=== PATIENT | female | born 1945 | race African-American/Black ===

== ENCOUNTER 2021-04-14 23:03 | Inpatient (IN) | payer BC, MEDICARE, OTHER ==
[~2021-04-14] VITALS: Ht 180.3 cm; Wt 99.3 kg
--- NOTE | 2021-04-14 23:20 | NUR ---
Dr. Reno at bedside, MSE in progress.
--- NOTE | 2021-04-14 23:21 | NUR ---
Patient BIB family member from home via wheelchair with c/o right groin pain radiating to back of her right thigh and back that started last night, PL:06/19. Also c/o RLE worsening swelling of right leg with increasing pain. A/O x4, no SOB or labored breathing, afebrile. Denies CP/pressure. All pulses palpable. Denies any GI/ distress.
[2021-04-14] MEDS ORDERED: OXYCODONE/APAP 5-325 MG TABLET ONE (23:43)
[2021-04-14] MEDS ORDERED: OXYCODONE/APAP 5-325 MG TABLET PO ONE (23:45)
[2021-04-15] MEDS ORDERED: ACYCLOVIR PO (00:01)
[2021-04-15] MEDS ORDERED: GABAPENTIN PO (00:01)
[2021-04-15] MEDS ORDERED: FENTANYL PATCH TD (00:01)
[2021-04-15] MEDS ORDERED: OXYCODONE PO (00:01)
--- NOTE | 2021-04-15 00:10 | NUR ---
Brando from Ultrasound at bedside.
[2021-04-15 00:21] LABS: MEAN CORPUSCULAR HEMOGLOBIN 30.6 uug (24.7-32.8); MEAN CORPUSCULAR VOLUME 91.9 fL (75.5-95.3); PLATELET COUNT (AUTO) 221 K/uL (179-408)
[2021-04-15 00:29] LABS: CREATININE 0.8 mg/dL (0.6-1.3); POTASSIUM 3.9 mmol/L (3.5-5.1)
--- NOTE | 2021-04-15 00:30 | NUR ---
Xray at bedside.
[2021-04-15 00:46] LABS: BILIRUBIN,DIRECT 0.2 mg/dL (0.0-0.2); BILIRUBIN,TOTAL 0.7 mg/dL (0.2-1.0); TOTAL PROTEIN, SERUM 6.9 g/dL (6.4-8.2)
[2021-04-15 00:52] LABS: *BILIRUBIN,URIN NEGATIVE (NEGATIVE); *CLARITY,URINE CLEAR (CLEAR); *COLOR,URINE YELLOW (YELLOW); *KETONES,URINE 1+ (NEGATIVE); *UROBILINOGEN,URINE 0.2 E.U./dl (NORMAL); LEUKOCYTE ESTERASE ,URINE TRACE (NEGATIVE); NITRITE, URINE NEGATIVE (NEGATIVE); UGLUCOSE NEGATIVE (NEGATIVE)
[2021-04-15 00:56] LABS: *BLOOD, URINE TRACE (NEGATIVE)
[2021-04-15] MEDS ORDERED: KETOROLAC TROMETHAMINE 30 MG INJ IM ONE (01:00)
[2021-04-15 01:06] LABS: BACTERIA,URINE NONE SEEN /HPF (NONE SEEN); SQUAMOUS EPITHELIAL CELL,UR FEW /HPF (NONE SEEN); WBC,URINE 0-3 /HPF (0-3)
[2021-04-15] MEDS ORDERED: KETOROLAC TROMETHAMINE 30 MG INJ ONE (01:16)
--- NOTE | 2021-04-15 02:08 | NUR ---
Pt taken down for CT.
[2021-04-15] MEDS ORDERED: SWABABLE VALVE TRANSFER SET EA MC ONE (02:09)
[2021-04-15] MEDS ORDERED: IOHEXOL 300MG/ML 100 ML INFUS..BTL ONE (02:09)
[2021-04-15] MEDS ORDERED: IV NORMAL SALINE 250 ML IV ONE (02:09)
--- NOTE | 2021-04-15 02:22 | NUR ---
Pt returned from CT, stable condition.
--- NOTE | 2021-04-15 03:45 | NUR ---
Called [facility] for panel call, Dr. Gilmore paged.
--- NOTE | 2021-04-15 03:48 | NUR ---
Patient is resting comfortably in bed with eyes closed.
[2021-04-15] MEDS ORDERED: MAGNESIUM HYDROXIDE 30 ML LIQUID UDC PO PRN (04:15)
[2021-04-15] MEDS ORDERED: ONDANSETRON 4 MG/2 ML VIAL IV PRN (04:15)
[2021-04-15] MEDS ORDERED: Z GUARD REMEDY PASTE 57 GM TUBE TOP PRN (04:15)
--- NOTE | 2021-04-15 04:53 | NUR ---
Gave report to Ana NATARAJAN in Med Surg.
[2021-04-15 05:05] VITALS: BP 113/63
--- NOTE | 2021-04-15 05:15 | NUR ---
Pt. admitted to Med Surg , under care of Dr. Gilmore Belongs List completed
[2021-04-15] MEDS: PANTOPRAZOLE SODIUM 40 MG TABLET.DR PO SCH (06:12)
[2021-04-15] MEDS: IV NS 1000 ML 1,000 ML IV PRN ×2 (06:12→19:56)
[2021-04-15] MEDS: MORPHINE SULFATE 2 MG/1 ML DISP.SYRIN IV PRN ×2 (08:52→14:16)
[2021-04-15] MEDS: ENOXAPARIN SODIUM 40 MG/0.4 ML DISP.SYRIN SQ SCH (10:03)
[2021-04-15 12:00] VITALS: BP 111/65
[2021-04-15] MEDS ORDERED: GABA600T12 PO (14:44)
[2021-04-15] MEDS ORDERED: FENT1PAT22 TOP (14:44)
[2021-04-15 15:54] VITALS: BP 114/52
[2021-04-15] MEDS ORDERED: PIPERACILLIN SODIUM/TAZOBACTAM 3.375 G in IV DEXTROSE 5% 50 ML IV ONE (17:00)
[2021-04-15] MEDS: FUROSEMIDE 20 MG TABLET PO SCH (18:16)
--- NOTE | 2021-04-15 19:30 | NUR ---
RECEIVED PT AWAKE, ALERT AND ORIENTEDX4. PT IN NO ACUTE DISTRESS. IV INTACT. SAFETY AND COMFORT PROVIDED. WILL CONTINUE TO MONITOR.
--- NOTE | 2021-04-15 20:13 | NUR ---
TEXTED DR. LEBLANC FOR MRI APPROVAL.
[2021-04-15 20:30] VITALS: BP 113/54
[2021-04-15 21:57] LABS: *BILIRUBIN,URIN NEGATIVE (NEGATIVE); *BLOOD, URINE TRACE LYSED (NEGATIVE); *CLARITY,URINE CLEAR (CLEAR); *COLOR,URINE YELLOW (YELLOW); *KETONES,URINE NEGATIVE (NEGATIVE); *UROBILINOGEN,URINE 0.2 E.U./dl (NORMAL); LEUKOCYTE ESTERASE ,URINE NEGATIVE (NEGATIVE); NITRITE, URINE NEGATIVE (NEGATIVE); PH,URINE 5.5 (5.0-8.0); UGLUCOSE NEGATIVE (NEGATIVE)
[2021-04-15 22:42] LABS: BACTERIA,URINE NONE SEEN /HPF (NONE SEEN); SQUAMOUS EPITHELIAL CELL,UR FEW /HPF (NONE SEEN); WBC,URINE 0-3 /HPF (0-3)
[2021-04-16] MEDS: PIPERACILLIN SODIUM/TAZOBACTAM 3.375 G in IV DEXTROSE 5% 100 ML IV SCH ×3 (00:07→17:27)
[2021-04-16] MEDS: MORPHINE SULFATE 2 MG/1 ML DISP.SYRIN IV PRN ×2 (02:28→06:47)
[2021-04-16 04:30] VITALS: BP 106/49
[2021-04-16] MEDS: ACETAMINOPHEN 325 MG TABLET PO PRN ×2 (05:41→14:15)
[2021-04-16 05:42] LABS: HEMATOCRIT 29.5 % (31.2-41.9); MEAN CORPUSCULAR HEMOGLOBIN 30.4 uug (24.7-32.8); MEAN CORPUSCULAR VOLUME 92.1 fL (75.5-95.3); PLATELET COUNT (AUTO) 162 K/uL (179-408)
[2021-04-16 06:01] LABS: BILIRUBIN,TOTAL 0.5 mg/dL (0.2-1.0); CREATININE 0.8 mg/dL (0.6-1.3); MAGNESIUM 1.9 mg/dL (1.8-2.4); PHOSPHOROUS 3.2 mg/dL (2.5-4.9); POTASSIUM 3.6 mmol/L (3.5-5.1); TOTAL PROTEIN, SERUM 5.7 g/dL (6.4-8.2)
[2021-04-16 06:09] LABS: THYROID STIMULATING HORMONE 3.849 mIU/mL (0.358-3.740)
[2021-04-16] MEDS: PANTOPRAZOLE SODIUM 40 MG TABLET.DR PO SCH (06:15)
--- NOTE | 2021-04-16 06:26 | NUR ---
PT IN NO ACUTE RESPIRATORY DISTRESS. IV INTACT. MORPHINE PRN GIVEN 0228H FOR GROIN PAIN. TYLENOL 650 MG PRN GIVEN AT 0541H FOR PAIN. SAFETY AND COMFORT PROVIDED. WILL CONTINUE TO MONITOR.
[2021-04-16 07:06] LABS: AFP, TUMOR MARKER 3.4 ng/mL (0.0-8.3)
[2021-04-16 08:00] VITALS: BP 105/55
[2021-04-16] MEDS: FUROSEMIDE 20 MG TABLET PO SCH ×2 (08:28→17:27)
[2021-04-16] MEDS: ENOXAPARIN SODIUM 40 MG/0.4 ML DISP.SYRIN SQ SCH ×2 (08:30→09:00)
--- NOTE | 2021-04-16 09:00 | NUR ---
PT REFUSED LOVENOX. MEDICATION RETURNED TO THE PYXIS.
[2021-04-16] MEDS: HYDROMORPHONE 1 MG/1 ML DISP.SYRIN IV PRN ×3 (09:45→19:58)
--- NOTE | 2021-04-16 10:15 | NUR ---
AT 0945H DILAUDID 0.5MG PRN WAS GIVEN FOR 10/10 PAIN SCALE GROIN AREA. PT TOLERATED IT WELL. SAFETY AND COMFORT PROVIDED. WILL CONTINUE TO MONITOR.
--- NOTE | 2021-04-16 10:57 | NUR ---
GHAZALA PICKED UP THE PT. GIVEN PAPERWORKS NEEDED. IV INTACT. RIGHT FA 20 G AND LEFT FA 20G. ENDORSE TO KHADAR NATARAJAN. PT STABLE.
--- NOTE | 2021-04-16 11:01 | NUR ---
Received report. Patient currently being transported to [facility] for MRI.
--- NOTE | 2021-04-16 14:15 | NUR ---
Pt arrived via gurney from [facility]. V/S: BP:134/68, HR 79, 98% on RA. Pt c/o 1010 R. leg/groin pain. Will give prescribed 0.5mg Dilaudid and Tylenol for oral temperature of 100.3. Will cont to monitor.
[2021-04-16 15:43] VITALS: BP 119/64
[2021-04-16] MEDS ORDERED: NALOXONE HCL 0.4 MG/ML AMPUL IV PRN (19:00)
[2021-04-16] MEDS ORDERED: ACYC400T19 PO (19:49)
[2021-04-16] MEDS ORDERED: OXYC-128 PO (19:49)
[2021-04-16] MEDS ORDERED: DEXA4TAB PO (19:49)
[2021-04-16 20:51] VITALS: BP 108/57
[2021-04-17] MEDS: IV NS 1000 ML 1,000 ML IV PRN (01:16)
[2021-04-17] MEDS: HYDROMORPHONE 1 MG/1 ML DISP.SYRIN IV PRN ×4 (01:16→16:30)
[2021-04-17] MEDS: PIPERACILLIN SODIUM/TAZOBACTAM 3.375 G in IV DEXTROSE 5% 100 ML IV SCH ×3 (01:16→17:24)
--- NOTE | 2021-04-17 01:20 | NUR ---
Patient given 0.5 mg of dilaudid. 0.5 mg wasted with another nurse.
[2021-04-17 04:00] VITALS: BP 142/62
[2021-04-17 06:28] LABS: HEMATOCRIT 31.9 % (31.2-41.9); MEAN CORPUSCULAR HEMOGLOBIN 31.2 uug (24.7-32.8); MEAN CORPUSCULAR VOLUME 91.6 fL (75.5-95.3); PLATELET COUNT (AUTO) 214 K/uL (179-408)
[2021-04-17] MEDS: PANTOPRAZOLE SODIUM 40 MG TABLET.DR PO SCH (06:58)
--- NOTE | 2021-04-17 07:07 | NUR ---
Patient resting in bed. Awake, alert and oriented x 4. Patient slept well. In the morning she complained of pain in the legs and hip. Dilaudid given, stated pain relief. No signs of distress, no reports of shortness of breath at this time. Vital signs stable.
[2021-04-17 07:14] LABS: CREATININE 0.8 mg/dL (0.6-1.3); POTASSIUM 3.8 mmol/L (3.5-5.1)
--- NOTE | 2021-04-17 08:00 | NUR ---
RECEIVED CHANGE OF SHIFT REPORT, PT RESTING IN BED, A/OX4, ON ROOM AIR NO SIGNS OF DISTRESS, NO REPORTS OF PAIN, USES DIAPER TO URINATE. BED LOW AND LOCKED, CALL LIGHT WITHIN REACH, WILL CONTINUE WITH PLAN OF CARE.
[2021-04-17 08:54] VITALS: BP 116/64
[2021-04-17] MEDS: FUROSEMIDE 20 MG TABLET PO SCH ×2 (08:58→17:24)
[2021-04-17] MEDS: ENOXAPARIN SODIUM 40 MG/0.4 ML DISP.SYRIN SQ SCH ×2 (08:58→09:00)
[2021-04-17] MEDS: FERROUS SULFATE 325 MG TABEC PO SCH ×2 (09:44→21:11)
[2021-04-17 12:40] VITALS: BP 121/68
[2021-04-17 12:51] LABS: EOSINOPHILS % (MANUAL) 1 % (0-8); LYMPHOCYTES % (MANUAL) 10 % (20-40); MONOCYTES % (MANUAL) 20 % (2-10); NEUTROPHILS % (MANUAL) 69 % (42-75)
[2021-04-17 16:55] VITALS: BP 115/55
[2021-04-17] MEDS ORDERED: ACYCLOVIR 400 MG TABLET PO SCH (17:00)
--- NOTE | 2021-04-17 18:47 | NUR ---
PT RESTING IN BED, A/OX4, ON ROOM AIR NO SIGNS OF DISTRESS, NO REPORTS OF PAIN, USES DIAPER TO URINATE. PENDING UA AND STOOL SAMPLES. PT IV ON THE LEFT WRIST 22G INFUSING NS AT 75ML/HR. BED LOW AND LOCKED, CALL LIGHT WITHIN REACH, WILL ENDORSE TO ONCOMING NURSE
[2021-04-17 20:15] VITALS: BP 114/68
[2021-04-17] MEDS: GABAPENTIN 300 MG CAPSULE PO SCH (20:30)
[2021-04-17] MEDS: FENTANYL 75 MCG/HR PATCH EACH TD SCH (20:30)
--- NOTE | 2021-04-17 20:30 | NUR ---
PATIENT AWAKE IN BED. A/O X4. C/O PAIN 8/10 IN RIGHT HIP. PATIENT GIVEN ROUTINE MEDS. FENTANYL PATCH 75MG APPLIED TO RIGHT HIP. VS WNL. AFEBRILE, 98.0. IVF INFUSING WELL TO RIGHT WRIST. CALL LIGHT IN REACH. ALL NEEDS ATTENDED. WILL CONTINUE TO MONITOR AND ASSESS.
[2021-04-18] MEDS: PIPERACILLIN SODIUM/TAZOBACTAM 3.375 G in IV DEXTROSE 5% 100 ML IV SCH ×3 (01:19→16:40)
[2021-04-18 04:15] VITALS: BP 145/76
[2021-04-18] MEDS: ACETAMINOPHEN 325 MG TABLET PO PRN (04:52)
[2021-04-18] MEDS: HYDROMORPHONE 1 MG/1 ML DISP.SYRIN IV PRN ×2 (04:53→19:47)
[2021-04-18] MEDS: PANTOPRAZOLE SODIUM 40 MG TABLET.DR PO SCH (06:16)
[2021-04-18] MEDS: IV NS 1000 ML 1,000 ML IV PRN ×2 (06:20→20:31)
--- NOTE | 2021-04-18 06:52 | NUR ---
PATIENT AWAKE IN BED. VS WNL. IVF INFUSING WELL. CALL LIGHT IN REACH. ALL NEEDS ATTENDED. WILL CONTINUE TO MONITOR AND ASSESS.
[2021-04-18 07:49] LABS: CREATININE 0.7 mg/dL (0.6-1.3); MAGNESIUM 2.1 mg/dL (1.8-2.4); POTASSIUM 3.6 mmol/L (3.5-5.1)
[2021-04-18 07:50] LABS: HEMATOCRIT 34.1 % (31.2-41.9); MEAN CORPUSCULAR HEMOGLOBIN 30.8 uug (24.7-32.8); MEAN CORPUSCULAR VOLUME 91.5 fL (75.5-95.3); PLATELET COUNT (AUTO) 234 K/uL (179-408)
--- NOTE | 2021-04-18 08:00 | NUR ---
RESTING COMFORTABLY IN BED WITH EYES CLOSED NO SS OF ACUTE PAIN OR SOB. KEPT NPO FOR ABDOMINAL US
[2021-04-18] MEDS: FERROUS SULFATE 325 MG TABEC PO SCH ×2 (08:36→20:32)
[2021-04-18] MEDS: GABAPENTIN 300 MG CAPSULE PO SCH ×2 (08:36→20:31)
[2021-04-18] MEDS: ACYCLOVIR 200 MG CAPSULE PO SCH ×2 (08:37→16:40)
[2021-04-18] MEDS: FUROSEMIDE 20 MG TABLET PO SCH ×2 (08:37→16:40)
[2021-04-18] MEDS: ENOXAPARIN SODIUM 40 MG/0.4 ML DISP.SYRIN SQ SCH (08:38)
[2021-04-18 11:49] VITALS: BP 139/56
--- NOTE | 2021-04-18 12:00 | NUR ---
ABDOMINAL US COMPLETED AT BEDSIDE, SEEN BY HOSPITALIST DAVION AWAITING RESULTS. DENIES ANY ACUTE PAIN. N/V
[2021-04-18 13:12] LABS: LYMPHOCYTES % (MANUAL) 18 % (20-40); MONOCYTES % (MANUAL) 12 % (2-10); NEUTROPHILS % (MANUAL) 70 % (42-75)
[2021-04-18] MEDS ORDERED: methylPREDNISolone 1 PACK TAB.DS.PK [4MG TAB] PO ONE (13:30)
[2021-04-18] MEDS ORDERED: methylPREDNISolone 4 MG TABLET (DAY#1) PO ONE (13:45)
--- NOTE | 2021-04-18 15:41 | NUR ---
SEEN BY DR TATE FOR ONCOLOGY FOLLOW-UP, SEE NOTES
[2021-04-18 16:47] VITALS: BP 107/59
[2021-04-18] MEDS ORDERED: methylPREDNISolone 4 MG TABLET (DAY#1, BEFORE DINNER) PO ONE (17:30)
[2021-04-18] MEDS ORDERED: methylPREDNISolone 4 MG TABLET (DAY#1, HS) PO ONE (21:00)
[2021-04-19] MEDS: PIPERACILLIN SODIUM/TAZOBACTAM 3.375 G in IV DEXTROSE 5% 100 ML IV SCH ×2 (00:39→08:26)
[2021-04-19] MEDS: HYDROMORPHONE 1 MG/1 ML DISP.SYRIN IV PRN ×3 (00:39→17:50)
[2021-04-19 04:00] VITALS: BP 125/70
[2021-04-19] MEDS: PANTOPRAZOLE SODIUM 40 MG TABLET.DR PO SCH (06:33)
--- NOTE | 2021-04-19 07:26 | NUR ---
Pt slept intermittently throughout the night. Denies chest pain or SOB. Given Dilaudid for pain, tolerated well. Tolerated all medications given. Safety and comfort provided, will endorse to day shift.
[2021-04-19] MEDS ORDERED: methylPREDNISolone 4 MG TABLET (DAY#2, ACB) PO ONE (07:30)
[2021-04-19 07:48] LABS: CREATININE 0.7 mg/dL (0.6-1.3); MAGNESIUM 2.2 mg/dL (1.8-2.4); POTASSIUM 4.1 mmol/L (3.5-5.1)
[2021-04-19 08:13] LABS: HEMATOCRIT 35.5 % (31.2-41.9); MEAN CORPUSCULAR HEMOGLOBIN 30.2 uug (24.7-32.8); MEAN CORPUSCULAR VOLUME 90.2 fL (75.5-95.3); PLATELET COUNT (AUTO) 274 K/uL (179-408)
[2021-04-19] MEDS: FUROSEMIDE 20 MG TABLET PO SCH ×2 (08:27→16:17)
[2021-04-19] MEDS: FERROUS SULFATE 325 MG TABEC PO SCH ×2 (08:27→20:27)
[2021-04-19] MEDS: GABAPENTIN 300 MG CAPSULE PO SCH ×2 (08:27→20:27)
[2021-04-19] MEDS: ACYCLOVIR 200 MG CAPSULE PO SCH ×2 (08:27→16:17)
[2021-04-19] MEDS: ENOXAPARIN SODIUM 40 MG/0.4 ML DISP.SYRIN SQ SCH (08:29)
[2021-04-19] MEDS: IV NS 1000 ML 1,000 ML IV PRN (12:19)
[2021-04-19] MEDS ORDERED: methylPREDNISolone 4 MG TABLET (DAY#2, PC LUNCH) PO ONE (12:30)
--- NOTE | 2021-04-19 14:15 | NUR ---
SEEN BY HOSPITALIST AND SAID WILL TRY TO RESTART PHYSICAL THERAPY TOLERATED. PT DEPT NOTIFIED
[2021-04-19 16:20] VITALS: BP 137/78
[2021-04-19] MEDS ORDERED: methylPREDNISolone 4 MG TABLET (DAY#2, PC DINNER) PO ONE (17:30)
--- NOTE | 2021-04-19 19:30 | NUR ---
RECEIVED PT AWAKE, ALERT AND ORIENTEDX4. PT IN NO ACUTE DISTRESS. FAMILY AT BEDSIDE. SAFETY AND COMFORT PROVIDED. WILL CONTINUE TO MONITOR.
[2021-04-19 20:00] VITALS: BP 133/79
[2021-04-19] MEDS ORDERED: methylPREDNISolone 4 MG TABLET (DAY#2, HS) PO ONE (21:00)
[2021-04-20] MEDS: HYDROMORPHONE 1 MG/1 ML DISP.SYRIN IV PRN ×3 (00:49→20:26)
[2021-04-20] MEDS: IV NS 1000 ML 1,000 ML IV PRN ×2 (00:55→14:29)
--- NOTE | 2021-04-20 01:00 | NUR ---
At 0049h dialudid 0.5mg prn given for left hip pain. Pt tolerated it well.
[2021-04-20 04:00] VITALS: BP 129/67
[2021-04-20] MEDS: PANTOPRAZOLE SODIUM 40 MG TABLET.DR PO SCH (06:00)
--- NOTE | 2021-04-20 06:23 | NUR ---
PT SLEPT INTERMITTENTLY.PT IN NO ACUTE DISTRESS. PRESCRIBED MEDICATION GIVEN AND PT TOLERATED IT WELL . SAFETY AND COMFORT PROVIDED.WILL ENDORSE TO INCOMING NURSE FOR CONTINUITY OF CARE.
--- NOTE | 2021-04-20 06:38 | NUR ---
Dilaudid 0.5mg prn at 0634h was given to the pt for pain on her right groin and hip. Pt tolerated it well.
--- NOTE | 2021-04-20 07:25 | NUR ---
RECEIVED PATIENT IN BED AWAKE ALERT AND ORIENTED ON HIS PERSONAL TELEPHONE AT THIS TIME DID NOT SEEM TO BE IN ANY DISTRESS OR PAIN REMAIN ON IVF ORDERED WITH NO S/S OF INFILTERATION ON SITE CALL LIGHTS AND PERSONAL BELONGINGS ARE WITHIN EASY REACH AT THIS TIME WILL CONTINUE TO OBSERVE.
[2021-04-20] MEDS ORDERED: methylPREDNISolone 4 MG TABLET (DAY#3, ACB) PO ONE (07:30)
[2021-04-20 08:00] VITALS: BP 129/63
[2021-04-20] MEDS: GABAPENTIN 300 MG CAPSULE PO SCH ×2 (09:12→20:26)
[2021-04-20] MEDS: FUROSEMIDE 20 MG TABLET PO SCH ×2 (09:13→16:52)
[2021-04-20] MEDS: FERROUS SULFATE 325 MG TABEC PO SCH ×2 (09:13→20:26)
[2021-04-20] MEDS: ACYCLOVIR 200 MG CAPSULE PO SCH ×2 (09:13→16:52)
[2021-04-20] MEDS: ENOXAPARIN SODIUM 40 MG/0.4 ML DISP.SYRIN SQ SCH (09:14)
--- NOTE | 2021-04-20 11:30 | NUR ---
SEEN BY JOHNNIE RICARDO [facility] PROVIDER WITH ORDER TO DISCHARGE PATIENT TO THE SNF WHEN ARRANGEMENTS ARE COMPLETED BY THE OUTPATIENT CLERK AND BED IS AVAILABLE.PATIENT AWARE.
[2021-04-20 11:58] VITALS: BP 129/74
[2021-04-20] MEDS ORDERED: methylPREDNISolone 4 MG TABLET (DAY#3, PC LUNCH) PO ONE (12:30)
[2021-04-20 16:08] VITALS: BP 111/61
[2021-04-20] MEDS ORDERED: methylPREDNISolone 4 MG TABLET (DAY#3, PC DINNER) PO ONE (17:30)
--- NOTE | 2021-04-20 18:00 | NUR ---
D/C PLANNING STILL AWAITING FOR AUTHORIZATION THROUGH [facility] FOR PATIENT TO BE TRANSFERED TO [facility].
--- NOTE | 2021-04-20 19:00 | NUR ---
RECEIVED PT AWAKE, ALERT AND ORIENTEDX4. PT IN NO ACUTE DISTRESS. IV INTACT. SAFETY AND COMFORT PROVIDED. WILL CONTINUE TO MONITOR.
[2021-04-20] MEDS: FENTANYL 75 MCG/HR PATCH EACH TD SCH (20:28)
[2021-04-20 20:48] VITALS: BP 110/73
[2021-04-20] MEDS ORDERED: methylPREDNISolone 4 MG TABLET (DAY#3, HS) PO ONE (21:00)
--- NOTE | 2021-04-20 22:06 | NUR ---
AT 2025H DILAUDID 0.5MG PRN GIVEN FOR 8/10 PAIN SCALE ON HER RIGHT HIP AND GROIN . PT TOLERATED IT WELL. AFTER AN HOUR PT STATED THE PAIN GOT BETTER SLIGHTLY. WILL CONTINUE TO MONITOR.
[2021-04-21] MEDS: HYDROMORPHONE 1 MG/1 ML DISP.SYRIN IV PRN ×2 (04:25→22:36)
[2021-04-21] MEDS: IV NS 1000 ML 1,000 ML IV PRN ×2 (04:25→18:04)
[2021-04-21 04:55] VITALS: BP 138/78
--- NOTE | 2021-04-21 05:07 | NUR ---
At 0425h dilaudid 0.5mg prn given for pain. Pt tolerated it well. After 30 minutes pt stated she feels better. Pt stable. Will continue to monitor.
[2021-04-21] MEDS: PANTOPRAZOLE SODIUM 40 MG TABLET.DR PO SCH (06:07)
--- NOTE | 2021-04-21 06:31 | NUR ---
PT SLEPT INTERMITTENTLY. PT IN NO ACUTE DISTRESS. IV INTACT. PRESCRIBED MEDICATION GIVEN AND PT TOLERATED IT WELL. DIALUDID PRN GIVEN TWICE. SAFETY AND COMFORT PROVIDED. WILL ENDORSE TO INCOMING NURSE FOR CONTINUITY OF CARE.
[2021-04-21] MEDS ORDERED: methylPREDNISolone 4 MG TABLET (DAY#4, ACB) PO ONE (07:30)
--- NOTE | 2021-04-21 07:30 | NUR ---
RECEIVED PATIENT IN BED AWAKE ALERT AND ORIENTED ANXIOUS ABOUT DISCHARGE AND WHERE SHE IS GOING TODAY REASSURED HER THAT THE DIRECTOR OF GROUP COUNSELING PROGRAM AND HER INSURANCE IS ARRANGING FOR A SAFE PLACE FOR HER REMAIN ON IVF ORDERED WITH NO S/S OF INFILTERATION ON SITE CALL LIGHTS AND PERSONAL BELONGINGS ARE WITHIN EASY REACH AT THIS TIME WILL CONTINUE TO OBSERVE.
[2021-04-21] MEDS: FUROSEMIDE 20 MG TABLET PO SCH ×2 (08:15→16:21)
[2021-04-21] MEDS: ACYCLOVIR 200 MG CAPSULE PO SCH ×2 (08:15→16:22)
[2021-04-21] MEDS: FERROUS SULFATE 325 MG TABEC PO SCH ×2 (08:15→20:45)
[2021-04-21] MEDS: GABAPENTIN 300 MG CAPSULE PO SCH ×2 (08:16→20:37)
[2021-04-21] MEDS: ENOXAPARIN SODIUM 40 MG/0.4 ML DISP.SYRIN SQ SCH (08:17)
[2021-04-21 11:46] VITALS: BP 107/71
[2021-04-21] MEDS ORDERED: methylPREDNISolone 4 MG TABLET (DAY#4, PC LUNCH) PO ONE (12:30)
--- NOTE | 2021-04-21 13:00 | NUR ---
PATIENT SEEN AND EXAMINED BY VERONIKA CRAVEN DNP WITH NO NEW ORDERS D/C PLANNING AWAITING FOR PLACEMENT.
[2021-04-21] MEDS ORDERED: METH4TAB PO ×2 (13:40)
[2021-04-21 15:46] VITALS: BP 118/66
--- NOTE | 2021-04-21 18:00 | NUR ---
RESTING WITH NO C/O AT THIS TIME EATING DINNER NOT IN DISTRESS AT THIS TIME REMAIN ON IVF ORDERED WITH NO S/S OF INFILTERATION ON SITE WILL CONTINUE TO OBSERVE.
[2021-04-21 18:40] LABS: *IMMUNOGLOBULIN G, SERUM 827; IMMUNOGLOBULIN A, SERUM 107
[2021-04-21 18:41] LABS: IMMUNOGLOBULIN M, SERUM 27
[2021-04-21 18:42] LABS: ALPHA-1-GLOBULIN 0.5 HIGH; ALPHA-2-GLOBULIN 0.8; BETA GLOBULIN 0.9; GAMMA GLOBULIN 0.8
[2021-04-21 18:43] LABS: GLOBULIN, TOTAL 3.1; M-SPIKE Not Observed
[2021-04-21 20:14] VITALS: BP 109/60
[2021-04-21] MEDS ORDERED: methylPREDNISolone 4 MG TABLET (DAY#4, HS) PO ONE (21:00)
[2021-04-22] MEDS: IV NS 1000 ML 1,000 ML IV PRN ×2 (04:24→20:54)
[2021-04-22 04:45] VITALS: BP 119/68
[2021-04-22] MEDS: PANTOPRAZOLE SODIUM 40 MG TABLET.DR PO SCH (06:08)
[2021-04-22] MEDS ORDERED: methylPREDNISolone 4 MG TABLET (DAY#5, ACB) PO ONE (07:30)
--- NOTE | 2021-04-22 07:30 | NUR ---
Patient received in bed, alert and oriented x4. Patient on RA with no SOB or difficulties breathing. No acute distress noted at this time. Patient has right wrist IV intact running IVF at 75 mL/h as ordered with no redness or swelling. Patient states that he wants Dr. Santos to review some notes about a possible epidural for end plate, which was suggested by her previous physician. Dr. Santos informed and is aware. Call light and personal belongings within easy reach. Will continue to monitor.
[2021-04-22] MEDS: FERROUS SULFATE 325 MG TABEC PO SCH ×2 (08:45→20:27)
[2021-04-22] MEDS: ACYCLOVIR 200 MG CAPSULE PO SCH ×2 (08:45→17:23)
[2021-04-22] MEDS: GABAPENTIN 300 MG CAPSULE PO SCH ×2 (08:45→20:27)
[2021-04-22] MEDS: FUROSEMIDE 20 MG TABLET PO SCH ×2 (08:46→17:23)
[2021-04-22] MEDS: ENOXAPARIN SODIUM 40 MG/0.4 ML DISP.SYRIN SQ SCH (08:47)
[2021-04-22] MEDS: HYDROMORPHONE 1 MG/1 ML DISP.SYRIN IV PRN ×2 (09:00→17:23)
[2021-04-22 11:16] VITALS: BP 101/65
[2021-04-22 16:09] VITALS: BP 139/74
[2021-04-22 20:18] VITALS: BP 107/68
[2021-04-22] MEDS ORDERED: methylPREDNISolone 4 MG TABLET (DAY#5, HS) PO ONE (21:00)
[2021-04-23 00:14] VITALS: BP 113/59
[2021-04-23] MEDS: HYDROMORPHONE 1 MG/1 ML DISP.SYRIN IV PRN ×4 (03:42→20:30)
[2021-04-23] MEDS: PANTOPRAZOLE SODIUM 40 MG TABLET.DR PO SCH (06:06)
[2021-04-23] MEDS ORDERED: methylPREDNISolone 4 MG TABLET (DAY#6, ACB) PO ONE (07:30)
--- NOTE | 2021-04-23 07:30 | NUR ---
Patient received in bed, alert and oriented x4. Patient on RA with no SOB or difficulties breathing. No acute distress noted at this time. Patient has right wrist IV intact running IVF at 75 mL/h as ordered with no redness or swelling. Patient is aware of bone scan this morning and consent is signed. Call light and personal belongings within easy reach. Will continue to monitor.
[2021-04-23] MEDS: ENOXAPARIN SODIUM 40 MG/0.4 ML DISP.SYRIN SQ SCH (08:03)
[2021-04-23] MEDS: FUROSEMIDE 20 MG TABLET PO SCH ×2 (08:04→16:01)
[2021-04-23] MEDS: FERROUS SULFATE 325 MG TABEC PO SCH ×2 (08:04→20:01)
[2021-04-23] MEDS: ACYCLOVIR 200 MG CAPSULE PO SCH ×2 (08:04→16:02)
[2021-04-23] MEDS: GABAPENTIN 300 MG CAPSULE PO SCH ×2 (08:04→20:01)
[2021-04-23 12:00] VITALS: BP 112/64
[2021-04-23 16:00] VITALS: BP 96/58
[2021-04-23 20:00] VITALS: BP 116/53
[2021-04-23] MEDS: FENTANYL 75 MCG/HR PATCH EACH TD SCH (20:02)
[2021-04-24 04:00] VITALS: BP 115/61
--- NOTE | 2021-04-24 05:29 | NUR ---
Pt slept throughout the night. Pain relieved by Dilaudid. New Fentanyl patch placed yesterday at 2005H. Patient tolerated all medications well. No distress at this time. Safety and comfort provided. No other issues or concerns at this time, will endorse to day shift.
[2021-04-24] MEDS: PANTOPRAZOLE SODIUM 40 MG TABLET.DR PO SCH (06:25)
[2021-04-24] MEDS: IV NS 1000 ML 1,000 ML IV PRN ×2 (06:25→21:03)
[2021-04-24] MEDS: HYDROMORPHONE 1 MG/1 ML DISP.SYRIN IV PRN ×2 (06:48→17:38)
--- NOTE | 2021-04-24 07:30 | NUR ---
Patient received in bed, alert and oriented x4. Patient on RA with no SOB or difficulties breathing. No acute distress noted at this time. Patient has right wrist IV intact running IVF at 75 mL/h as ordered with no redness or swelling. Call light and personal belongings within easy reach. Will continue to monitor.
[2021-04-24] MEDS: GABAPENTIN 300 MG CAPSULE PO SCH ×2 (08:30→21:02)
[2021-04-24] MEDS: FERROUS SULFATE 325 MG TABEC PO SCH ×2 (08:30→20:54)
[2021-04-24] MEDS: FUROSEMIDE 20 MG TABLET PO SCH ×2 (08:30→17:38)
[2021-04-24] MEDS: ACYCLOVIR 200 MG CAPSULE PO SCH ×2 (08:30→17:38)
[2021-04-24] MEDS: ENOXAPARIN SODIUM 40 MG/0.4 ML DISP.SYRIN SQ SCH (08:35)
[2021-04-24 12:03] VITALS: BP 106/59
[2021-04-24 16:14] VITALS: BP 118/57
--- NOTE | 2021-04-24 20:00 | NUR ---
RECEIVED PATIENT AWAKE IN BED. A/O X4. DENIES ANY PAIN OR DISCOMFORT, PREVIOUSLY MEDICATED PER DAYSHIFT RN. NO RESP. DISTRESS NOTED. VSS. IVF INFUSING WELL TO LEFT FA #22 GAUGE. CALL LIGHT IN REACH. ALL NEEDS ATTENDED. WILL CONTINUE TO MONITOR AND ASSESS.
[2021-04-24 20:25] VITALS: BP 112/45
[2021-04-25 04:30] VITALS: BP 115/67
--- NOTE | 2021-04-25 05:45 | NUR ---
PATIENT AWAKE IN BED. SLEPT WELL THROUGHOUT THE NIGHT. NEW IV STARTED TO LEFT FA #22 GAUGE. IVF INFUSING WELL. PATIENT C/O PAIN IN RIGHT HIP, GIVEN DILAUDID 0.5MG IV PRN PER FLOOR CARE TECHNICIAN. VS WNL. BED ALARM ON. CALL LIGHT IN REACH. ALL NEEDS ATTENDED. WILL CONTINUE TO MONITOR AND ASSESS.
[2021-04-25] MEDS: HYDROMORPHONE 1 MG/1 ML DISP.SYRIN IV PRN (05:46)
[2021-04-25] MEDS: PANTOPRAZOLE SODIUM 40 MG TABLET.DR PO SCH (06:26)
[2021-04-25] MEDS: FUROSEMIDE 20 MG TABLET PO SCH ×2 (08:01→16:15)
[2021-04-25] MEDS: GABAPENTIN 300 MG CAPSULE PO SCH ×2 (08:01→20:53)
[2021-04-25] MEDS: ACYCLOVIR 200 MG CAPSULE PO SCH ×2 (08:01→16:15)
[2021-04-25] MEDS: FERROUS SULFATE 325 MG TABEC PO SCH ×2 (08:02→20:53)
[2021-04-25] MEDS: ENOXAPARIN SODIUM 40 MG/0.4 ML DISP.SYRIN SQ SCH (08:42)
--- NOTE | 2021-04-25 09:00 | NUR ---
RECEIVED PATIENT IN BED AWAKE ALERT AND ORIENTED DENIES PAIN OR DISCOMFORTS AT THIS TIME.REMAIN ON IVF ORDERED WITH NO S/S OF INFILTERATION ON SITE CALL LIGHTS AND HER PERSONAL BELONGINGS ARE WITHIN EASY REACH MADE COMFORTABLE WILL CONTINUE TO OBSERVE.
[2021-04-25 12:31] VITALS: BP 115/60
[2021-04-25] MEDS: IV NS 1000 ML 1,000 ML IV PRN (12:51)
--- NOTE | 2021-04-25 13:00 | NUR ---
PATIENT SAT AT THE EDGE OF THE BED WITH BOTH LEGS ON THE FLOOR HOLDING ONTO HER WALKER FOR A WHILE AND TOLERATED WELL ALSO USED THE BEDPAN IN THIS POSITION AND ASSISTED BACK INTO BED MADE COMFORTABLE
[2021-04-25] MEDS ORDERED: KETOROLAC TROMETHAMINE 15 MG INJ IVP ONE (13:45)
[2021-04-25 15:43] VITALS: BP 100/48
--- NOTE | 2021-04-25 19:40 | NUR ---
RECEIVED PATIENT AWAKE IN BED. A/O X 3. DENIES ANY PAIN OR DISCOMFORT AT THIS TIME, C/O PAIN DURING TIME OF ADL'S AND REPOSITIONING. NO RESP.DISTRESS NOTED. TEMPERATURE 100.1, ALL OTHER VSS. H/L INTACT AND PATENT, #22 GAUGE NOTED TO LEFT FA, IVF INFUSING WELL. CALL LIGHT IN REACH. ALL NEEDS ATTENDED. WILL CONTINUE TO MONITOR AND ASSESS.
[2021-04-25] MEDS: ACETAMINOPHEN 325 MG TABLET PO PRN (19:44)
--- NOTE | 2021-04-25 19:45 | NUR ---
PATIENT GIVEN TYLENOL 650MG PO PRN FOR ELEVATED TEMPERATURE. WILL CONTINUE TO MONITOR AND ASSESS.
[2021-04-25 20:16] VITALS: BP 105/53
--- NOTE | 2021-04-25 21:00 | NUR ---
PATIENT AWAKE IN BED. AFEBRILE. 98.4. SEEN BY DR. TATE. NEW ORDERS RECEIVED. PATIENT INFORMED THAT CLEAN CATCH URINE NEEDED TO BE COLLECTED. VERBALIZED UNDERSTANDING. NOTIFIED BRANDON BANDA ON-CALL THAT DR. TATE WANTS "PAIN MANAGEMENT" MD TO BE CALLED FOR CONSULT. BRANDON BANDA SAID SHE WILL TAKE CARE OF IT TOMORROW. NAVAL SCIENCE TEACHER NOTIFIED. ALL NEEDS ATTENDED. WILL CONTINUE TO MONITOR AND ASSESS.
[2021-04-26] MEDS: IV NS 1000 ML 1,000 ML IV PRN ×2 (01:54→15:06)
[2021-04-26] MEDS: HYDROMORPHONE 1 MG/1 ML DISP.SYRIN IV PRN ×3 (01:55→19:51)
[2021-04-26 04:07] VITALS: BP 112/58
--- NOTE | 2021-04-26 05:21 | NUR ---
URINE COLLECTED AND SENT TO LAB.
[2021-04-26 05:45] LABS: *BILIRUBIN,URIN NEGATIVE (NEGATIVE); *BLOOD, URINE NEGATIVE (NEGATIVE); *CLARITY,URINE CLEAR (CLEAR); *COLOR,URINE YELLOW (YELLOW); *KETONES,URINE NEGATIVE (NEGATIVE); *UROBILINOGEN,URINE 0.2 E.U./dl (NORMAL); LEUKOCYTE ESTERASE ,URINE NEGATIVE (NEGATIVE); NITRITE, URINE NEGATIVE (NEGATIVE); UGLUCOSE NEGATIVE (NEGATIVE)
[2021-04-26] MEDS: PANTOPRAZOLE SODIUM 40 MG TABLET.DR PO SCH (06:48)
--- NOTE | 2021-04-26 06:48 | NUR ---
PATIENT ASLEEP IN BED. SLEPT WELL THROUGHOUT THE NIGHT. CALL LIGHT IN REACH. ALL NEEDS ATTENDED. WILL CONTINUE TO MONITOR AND ASSESS.
[2021-04-26] MEDS: FUROSEMIDE 20 MG TABLET PO SCH ×2 (08:42→16:54)
[2021-04-26] MEDS: FERROUS SULFATE 325 MG TABEC PO SCH ×2 (08:42→20:19)
[2021-04-26] MEDS: GABAPENTIN 300 MG CAPSULE PO SCH ×2 (08:42→20:19)
[2021-04-26] MEDS: ACYCLOVIR 200 MG CAPSULE PO SCH ×2 (08:42→16:54)
[2021-04-26] MEDS: ENOXAPARIN SODIUM 40 MG/0.4 ML DISP.SYRIN SQ SCH (08:48)
[2021-04-26 11:39] VITALS: BP 100/49
--- NOTE | 2021-04-26 14:00 | NUR ---
PATIENT SEEN AND EXAMINED BY DR VERONIKA SILVER WITH NO NEW ORDERS AT THIS TIME.
[2021-04-26 16:00] VITALS: BP 106/64
--- NOTE | 2021-04-26 18:00 | NUR ---
REMAIN ON PAIN MANAGEMENT ORDERED AND HELPFUL WAS MEDICATED WITH DILAUDID PER HER REQUEST ORDERED IVF IS ALSO IN PROGRESS WITH NO S/S OF INFILTERATION ON SITE MADE COMFORTABLE WILL CONTINUE TO OBSERVE.
--- NOTE | 2021-04-26 19:00 | NUR ---
Received pt in bed, A&Ox4, verbally responsive and able to make needs known. No s/s of respiratory distress, denies any pain or discomfort at this time. IVF infusing well on L forearm. Discussed plan of care with the pt. Safety measures initiated, call light within reach.
[2021-04-26 20:09] VITALS: BP 113/66
[2021-04-26] MEDS: ACETAMINOPHEN 325 MG TABLET PO PRN (20:21)
[2021-04-26] MEDS: FENTANYL 75 MCG/HR PATCH EACH TD SCH (20:21)
[2021-04-27] MEDS: HYDROMORPHONE 1 MG/1 ML DISP.SYRIN IV PRN ×4 (02:09→18:26)
[2021-04-27 04:24] VITALS: BP 100/64
[2021-04-27] MEDS: PANTOPRAZOLE SODIUM 40 MG TABLET.DR PO SCH (06:15)
--- NOTE | 2021-04-27 06:49 | NUR ---
Slept through the night, no significant change in condition noted. Pain medications administered as needed, tolerated medications well. Bed bath provided, repositioning done as needed. Safety measures maintained at all times, all needs attended to and met.
[2021-04-27 07:10] LABS: HEMATOCRIT 31.3 % (31.2-41.9); MEAN CORPUSCULAR HEMOGLOBIN 30.1 uug (24.7-32.8); MEAN CORPUSCULAR VOLUME 90.3 fL (75.5-95.3); PLATELET COUNT (AUTO) 324 K/uL (179-408)
[2021-04-27] MEDS: IV NS 1000 ML 1,000 ML IV PRN ×2 (07:13→20:28)
[2021-04-27 07:17] LABS: BILIRUBIN,TOTAL 0.2 mg/dL (0.2-1.0); CREATININE 0.6 mg/dL (0.6-1.3); POTASSIUM 3.9 mmol/L (3.5-5.1); TOTAL PROTEIN, SERUM 6.1 g/dL (6.4-8.2)
[2021-04-27] MEDS: FERROUS SULFATE 325 MG TABEC PO SCH ×2 (08:21→20:26)
[2021-04-27] MEDS: ACYCLOVIR 200 MG CAPSULE PO SCH ×2 (08:21→18:26)
[2021-04-27] MEDS: FUROSEMIDE 20 MG TABLET PO SCH ×2 (08:21→18:25)
[2021-04-27] MEDS: GABAPENTIN 300 MG CAPSULE PO SCH ×2 (08:21→20:25)
[2021-04-27] MEDS: ENOXAPARIN SODIUM 40 MG/0.4 ML DISP.SYRIN SQ SCH (08:24)
[2021-04-27 11:39] VITALS: BP 105/61
[2021-04-27 14:26] LABS: EOSINOPHILS % (MANUAL) 2 % (0-8); LYMPHOCYTES % (MANUAL) 15 % (20-40); MONOCYTES % (MANUAL) 16 % (2-10); NEUTROPHILS % (MANUAL) 67 % (42-75)
[2021-04-27 16:20] VITALS: BP 108/74
--- NOTE | 2021-04-27 18:44 | NUR ---
patient discharged with significant other, unable to get walker for him, notified case liner Daisy and charge nurse.
--- NOTE | 2021-04-27 18:57 | NUR ---
patient in bed awake, pain medications provided. patient comfortable, no distress noted. IV patent and intact. will report to oncoming shift.
[2021-04-27 20:00] VITALS: BP 116/67
[2021-04-28] MEDS: HYDROMORPHONE 1 MG/1 ML DISP.SYRIN IV PRN ×2 (03:38→13:49)
[2021-04-28 05:37] VITALS: BP 106/67
[2021-04-28] MEDS: PANTOPRAZOLE SODIUM 40 MG TABLET.DR PO SCH (06:02)
--- NOTE | 2021-04-28 07:20 | NUR ---
NURSE REPORT Report obtained from night nurse Daisy and this nurse assumed care of patient. Received patient asleep at the beginning of shift. Call light within reach. Side rails elevated x 2. No sxs of pain or distress.
[2021-04-28] MEDS: ACYCLOVIR 200 MG CAPSULE PO SCH ×2 (09:50→17:22)
[2021-04-28] MEDS: FERROUS SULFATE 325 MG TABEC PO SCH (09:51)
[2021-04-28] MEDS: FUROSEMIDE 20 MG TABLET PO SCH ×2 (09:51→17:22)
[2021-04-28] MEDS: GABAPENTIN 300 MG CAPSULE PO SCH (09:51)
[2021-04-28] MEDS: ENOXAPARIN SODIUM 40 MG/0.4 ML DISP.SYRIN SQ SCH (09:56)
--- NOTE | 2021-04-28 10:00 | NUR ---
NURSE NOTES Patient incontinent of urine and TANKAGE SUPERVISOR gave patient a bed bath. Linen changed.
[2021-04-28 11:58] VITALS: BP 112/63
--- NOTE | 2021-04-28 14:35 | NUR ---
NURSE CARE Medicated for pain of R leg with Hydromorphone 0.5 mg IVP at 1349 with relief of pain. D/C instructions given to patient. Will removed SL from patient prior to transfer at 1730. Visitor at bedside.
[2021-04-28 15:59] VITALS: BP 109/81
--- NOTE | 2021-04-28 16:00 | NUR ---
DISCHARGE NOTE D/C instructions given with understandings. Verbalized understandings. Signed form and also property management form. SL removed with catheter intact.
--- NOTE | 2021-04-28 18:00 | NUR ---
DISCHARGE REPORT TO AMBULANCE PERSONNEL Report given to ambulance personnel Kenneth Munoz and patient to be transported to [facility] via [facility].
== END 2021-04-28 18:25 | DRG 551 ==
LOC: ER 23:06 → MEDSURG3 04-15 04:57
PROVIDERS: ADMIT Hospitalist; ATTEND Nurse Practitioner Family
DX: M47.27 Other spondylosis with radiculopathy, lumbosacral region (principal); I50.33 Acute on chronic diastolic (congestive) heart failure; C90.00 Multiple myeloma not having achieved remission; C78.7 Secondary malignant neoplasm of liver and intrahepatic bile duct; C79.51 Secondary malignant neoplasm of bone; M51.17 Intervertebral disc disorders with radiculopathy, lumbosacral region; M48.07 Spinal stenosis, lumbosacral region; R10.31 Right lower quadrant pain; Z96.641 Presence of right artificial hip joint; D18.09 Hemangioma of other sites; Z98.1 Arthrodesis status; E89.0 Postprocedural hypothyroidism; Z79.890 Hormone replacement therapy; G62.9 Polyneuropathy, unspecified; M81.0 Age-related osteoporosis without current pathological fracture; K86.9 Disease of pancreas, unspecified; D72.829 Elevated white blood cell count, unspecified; R79.89 Other specified abnormal findings of blood chemistry; F32.9 Major depressive disorder, single episode, unspecified; F41.9 Anxiety disorder, unspecified; E55.9 Vitamin D deficiency, unspecified; Z87.440 Personal history of urinary (tract) infections; M79.89 Other specified soft tissue disorders; K21.9 Gastro-esophageal reflux disease without esophagitis; G47.00 Insomnia, unspecified; I11.0 Hypertensive heart disease with heart failure; I27.20 Pulmonary hypertension, unspecified
CPT/HCPCS: 36415; 70030-TC; 71045; 72131; 72148; 72170; 74181; 76705; 78306; 82105; 82378; 82747; 82784; 83550; 83735; 84100; 84155; 84165; 84443; 85014; 85025; 85730; 86301; 86334; 87040; 93307; 97161; A4663; A9503; G0378; J1170; J1650; J1885; J2270; J2405; J2543; J7030; J7050; J7060; J7509; Q9967